=== PATIENT | male | born 1950 | race Caucasian/White ===

== ENCOUNTER 2021-05-15 13:17 | Observation (INO) | payer MEDICARE, BC ==
[~2021-05-15] VITALS: Ht 167.6 cm; Wt 81.8 kg
[2021-05-15 07:38] VITALS: BP 168/68
[~2021-05-15 13:17] MED LIST: AMLO2.5T96 PO; ASPI-1444 PO; ATOR40TA28 PO; CLOP75TA60 PO; DULA0.75 SQ; INSU100V37 SQ; LOSA-382 PO; METF-1211 PO; NITR0.4T50 SL; NITR0.4T52 SL; PANT-31 PO; RANO500T3 PO; SODIUM CHLORIDE 0.9% 1,000 ML ONE; TAMS-13 PO; VALA500T34 PO
[2021-05-15] MEDS ORDERED: SODIUM CHLORIDE 0.9% 1,000 ML IV ONE (14:30)
[2021-05-15 15:45] LABS: GLUCOMETER DEV NAME(LOC) SDS.; GLUCOSE,POINT OF CARE 128 MG/DL (70-110)
[2021-05-15] MEDS ORDERED: DIAZEPAM 5 MG TABLET PO ONE (16:30)
[2021-05-15] MEDS ORDERED: DiphenhydrAMINE HCL 50 MG CAPSULE PO ONE (16:30)
[2021-05-15] MEDS ORDERED: ASPIRIN 81 MG CHEWABLE TABLET PO ONE (16:30)
[2021-05-15] MEDS ORDERED: DIAZEPAM 5 MG TABLET ONE (17:28)
[2021-05-15] MEDS ORDERED: ASPIRIN 81 MG CHEWABLE TABLET ONE (17:28)
[2021-05-15] MEDS ORDERED: DiphenhydrAMINE HCL 50 MG CAPSULE ONE (17:28)
[2021-05-15] MEDS ORDERED: LIDOCAINE/PF 1% 30 ML VIAL ONE (19:16)
[2021-05-15] MEDS ORDERED: HEPARIN SODIUM 1000 UNITS/NS 1,000 ML ONE (19:16)
[2021-05-15] MEDS ORDERED: IOHEXOL 300 MG/ML 150 ML VIAL ONE (19:16)
[2021-05-15] MEDS ORDERED: IOHEXOL 300 MG/ML 100 ML VIAL ONE (19:16)
[2021-05-15] MEDS ORDERED: IOHEXOL 300 MG/ML 50 ML VIAL ONE (19:16)
[2021-05-15] MEDS ORDERED: SODIUM BICARBONATE 50 MEQ/50 ML VIAL ONE (19:16)
[2021-05-15 19:46] LABS: GLUCOMETER DEV NAME(LOC) SDS.; GLUCOSE,POINT OF CARE 65 MG/DL (70-110)
[2021-05-15] MEDS ORDERED: MIDAZOLAM HCL 2 MG/2 ML VIAL ONE (19:50)
[2021-05-15] MEDS ORDERED: FentaNYL CITRATE PF 100 MCG/2 ML VIAL ONE ×2 (19:50→20:11)
[2021-05-15] MEDS ORDERED: MIDAZOLAM HCL 2 MG/2 ML VIAL IVP ONE ×2 (20:00)
[2021-05-15] MEDS ORDERED: IOHEXOL 300 MG/ML 150 ML VIAL IARTER ONE (20:00)
[2021-05-15] MEDS ORDERED: FentaNYL CITRATE PF 100 MCG/2 ML VIAL IVP ONE ×3 (20:00→20:15)
[2021-05-15] MEDS ORDERED: HEPARIN SODIUM,PORCINE 5,000 UNITS/ML VIAL IVP ONE (20:00)
[2021-05-15] MEDS ORDERED: LIDOCAINE 1% 30 ML/SOD BICARB 8.4% 4 ML SQ ONE (20:00)
[2021-05-15] MEDS ORDERED: HEPARIN SODIUM 1000 UNITS/NS 1,000 ML IARTER ONE (20:00)
[2021-05-15] MEDS ORDERED: TICAGRELOR 90 MG TABLET ONE ×2 (20:40→21:27)
[2021-05-15 20:42] VITALS: BP 162/75
[2021-05-15] MEDS ORDERED: DEXTROSE 50%-WATER 25 GM/50 ML SYRINGE IVP PRN (21:00)
[2021-05-15] MEDS ORDERED: INSULIN LISPRO 100 UNITS/ML SQ PRN (21:00)
[2021-05-15] MEDS ORDERED: TICAGRELOR 90 MG TABLET PO ONE (21:00)
[2021-05-15] MEDS ORDERED: NITROGLYCERIN 0.4 MG SUBLINGUAL TABLET #25 SL PRN ×2 (21:00)
[2021-05-15 22:31] VITALS: BP 156/78
[2021-05-15 23:10] LABS: GLUCOMETER DEV NAME(LOC) 5N.1C; GLUCOSE,POINT OF CARE 107 MG/DL (70-110)
[2021-05-16] MEDS: TAMSULOSIN HCL 0.4 MG CAPSULE PO SCH ×2 (00:34→08:13)
[2021-05-16 03:41] VITALS: BP 148/90
[2021-05-16 05:20] VITALS: BP 137/71
[2021-05-16 06:36] LABS: GLUCOMETER DEV NAME(LOC) 5N.1C; GLUCOSE,POINT OF CARE 128 MG/DL (70-110)
[2021-05-16 07:18] VITALS: BP 144/74
[2021-05-16] MEDS ORDERED: MetFORMIN HCL 500 MG TABLET PO SCH (08:00)
[2021-05-16] MEDS ORDERED: ATORVASTATIN CALCIUM 40 MG TABLET PO SCH (09:00)
[2021-05-16] MEDS ORDERED: TICAGRELOR 90 MG TABLET PO SCH (09:00)
[2021-05-16] MEDS ORDERED: LOSARTAN POTASSIUM 50 MG TABLET PO SCH (09:00)
[2021-05-16] MEDS ORDERED: AmLODIPine BESYLATE 2.5 MG TABLET PO SCH (09:00)
[2021-05-16] MEDS ORDERED: ASPIRIN 81 MG DR TABLET PO SCH (09:00)
[2021-05-16] MEDS ORDERED: ValACYclovir HCL 500 MG TABLET PO SCH (09:00)
[2021-05-16] MEDS ORDERED: PANTOPRAZOLE SODIUM 40 MG DR TABLET PO SCH (09:00)
[2021-05-16] MEDS ORDERED: TICA90TA PO (11:41)
[2021-05-16 12:02] VITALS: BP 130/68
[2021-05-16 12:24] VITALS: BP 128/70
[2021-05-16 13:21] LABS: GLUCOMETER DEV NAME(LOC) 5N.1C; GLUCOSE,POINT OF CARE 176 MG/DL (70-110)
== END 2021-05-16 12:45 | disposition home or self-care (01) ==
LOC: CATHLAB 13:17 → 5S 21:31
PROVIDERS: ADMIT Internal Medicine Interventional Cardiology; ATTEND Internal Medicine Interventional Cardiology
DX: I25.10 Atherosclerotic heart disease of native coronary artery without angina pectoris (principal); R07.89 Other chest pain; I10 Essential (primary) hypertension; E11.9 Type 2 diabetes mellitus without complications; Z79.899 Other long term (current) drug therapy; Z95.5 Presence of coronary angioplasty implant and graft
CPT/HCPCS: 82962 ×2; 92920; 92928; 93458; 99152; 99153; 99219 ×2; C1760; C1874; J1644; J2250; J3010; J3490 ×2; J7030; Q9967 ×3

== ENCOUNTER 2022-04-02 06:47 | Day surgery (SDC) | payer MEDICARE, BC ==
[~2022-04-02] VITALS: Ht 167.6 cm; Wt 83.1 kg
[~2022-04-02 06:47] MED LIST changes: +AMLO-257 PO; -AMLO2.5T96 PO; +CHLO25TA3 PO; -CLOP75TA60 PO; -DULA0.75 SQ; +DULA1.5P SQ; +EVOL140S2 SQ; +INSU100I24; -INSU100V37 SQ; +INSU200I4 SQ; +ISOS30TA92 PO; +METO-408 PO; -NITR0.4T50 SL; -RANO500T3 PO; -SODIUM CHLORIDE 0.9% 1,000 ML ONE; +TICA90TA PO
[2022-04-02] MEDS ORDERED: SODIUM CHLORIDE 0.9% 1,000 ML IV ONE (07:00)
[2022-04-02] MEDS ORDERED: IOHEXOL 300 MG/ML 100 ML VIAL ONE ×2 (07:15→08:55)
[2022-04-02] MEDS ORDERED: 0.9% SODIUM CHLORIDE 10 ML SYRINGE IVP ONE (07:15)
[2022-04-02] MEDS ORDERED: LIDOCAINE/PF 1% 30 ML VIAL ONE ×2 (07:15→08:55)
[2022-04-02] MEDS ORDERED: HEPARIN SODIUM 1000 UNITS/NS 500 ML ONE (07:15)
[2022-04-02] MEDS ORDERED: MIDAZOLAM HCL 2 MG/2 ML VIAL ONE ×2 (07:16→09:04)
[2022-04-02] MEDS ORDERED: FentaNYL CITRATE PF 100 MCG/2 ML VIAL ONE ×2 (07:16→09:03)
[2022-04-02] MEDS ORDERED: DiphenhydrAMINE HCL 50 MG CAPSULE ONE (07:21)
[2022-04-02] MEDS ORDERED: DIAZEPAM 5 MG TABLET ONE (07:21)
[2022-04-02] MEDS ORDERED: HEPARIN SODIUM 1000 UNITS/NS 1,000 ML ONE (08:56)
[2022-04-02] MEDS ORDERED: DiphenhydrAMINE HCL 50 MG CAPSULE PO ONE (09:00)
[2022-04-02] MEDS ORDERED: DIAZEPAM 5 MG TABLET PO ONE (09:00)
[2022-04-02] MEDS ORDERED: ASPIRIN 81 MG CHEWABLE TABLET PO ONE (09:00)
[2022-04-02] MEDS ORDERED: LIDOCAINE 1% 30 ML/SOD BICARB 8.4% 4 ML SQ ONE (09:15)
[2022-04-02] MEDS ORDERED: HEPARIN SODIUM 1000 UNITS/NS 1,000 ML IARTER ONE (09:15)
[2022-04-02] MEDS ORDERED: MIDAZOLAM HCL 2 MG/2 ML VIAL IVP ONE ×2 (09:15→09:45)
[2022-04-02] MEDS ORDERED: IOHEXOL 300 MG/ML 100 ML VIAL ICOR ONE (09:15)
[2022-04-02] MEDS ORDERED: FentaNYL CITRATE PF 100 MCG/2 ML VIAL IVP ONE ×2 (09:15→09:45)
[2022-04-02 09:20] VITALS: BP 153/67
[2022-04-02 09:26] LABS: GLUCOMETER DEV NAME(LOC) SDS.; GLUCOSE,POINT OF CARE 86 MG/DL (70-110)
[2022-04-02] MEDS ORDERED: HEPARIN SODIUM,PORCINE 1,000 UNITS/ML 10 ML VIAL IVP ONE ×2 (09:45→11:45)
[2022-04-02 09:59] VITALS: BP 126/61
[2022-04-02] MEDS ORDERED: TICAGRELOR 90 MG TABLET ONE (10:05)
[2022-04-02] MEDS ORDERED: TICAGRELOR 90 MG TABLET PO ONE ×2 (10:15)
== END 2022-04-02 16:11 | disposition home or self-care (01) ==
LOC: CATHLAB 06:47
PROVIDERS: ATTEND Internal Medicine Interventional Cardiology
DX: R07.9 Chest pain, unspecified (principal); I25.10 Atherosclerotic heart disease of native coronary artery without angina pectoris; T82.855A Stenosis of coronary artery stent, initial encounter; E11.9 Type 2 diabetes mellitus without complications; Z98.890 Other specified postprocedural states; Z79.899 Other long term (current) drug therapy; Y83.8 Other surgical procedures as the cause of abnormal reaction of the patient, or of later complication, without mention of misadventure at the time of the procedure
CPT/HCPCS: 82962; 99152; 99153; 93005; 93458; 92978; 92979; C9600; C1757; C1887; C1760; C1874; J3010; J1644; J3490; J2250; Q9967; C1753; 75960; 92920; 92928